=== PATIENT | female | born 1975 ===

== ENCOUNTER 2018-03-11 09:55 | Emergency (ER) | payer SELFPAY ==
--- NOTE | 2018-03-11 10:15 | UC ---
Laceration HPI - HPI Summary HPI Summary: 42 yo female presents with laceration to left thumb. She tells me that about 20min [employer] she was cutting an avocado and the knife slipped and she sliced her left thumb. She bandaged the area and came to . She is unsure the date of her last tetanus. - History Of Current Complaint Chief Complaint: UCLaceration Stated Complaint: THUMB LAC Time Seen by Provider: 03/11/18 10:15 Hx Obtained From: Patient Hx Last Menstrual Period: 02/28/18 Laceration Location: Finger Mechanism Of Injury: Sharp Trauma Onset/Duration: Sudden Onset Severity: Mild Pain Intensity: 2 Pain Scale Used: 0-10 Numeric - Allergies/Home Medications Allergies/Adverse Reactions: Allergies Allergy/AdvReac Type Severity Reaction Status Date / Time No Known Allergies Allergy Verified 03/11/18 10:13 Home Medications: Home Medications NK [No Home Medications Reported] 03/11/18 [History Confirmed 03/11/18] PMH/Surg Hx/FS Hx/Imm Hx - Additional Past Medical History Additional PMH: None - Surgical History Surgical History: None - Family History Known Family History: Positive: None - Social History Occupation: Employed Full-time Lives: With Family Alcohol Use: None Substance Use Type: None Smoking Status (MU): Never Smoked Tobacco Review of Systems Constitutional: Negative Skin: Other - Laceration left thumb Respiratory: Negative Cardiovascular: Negative Neurovascular: Negative Musculoskeletal: Negative Neurological: Negative Psychological: Negative All Other Systems Reviewed And Are Negative: Yes Physical Exam - Summary Physical Exam Summary: GENERAL: NAD. WDWN. No pain distress. SKIN: LEFT THUMB: on the radial aspect of the left thumb there is a 1.0cm linear superficial laceration that is well approximated at rest. No active bleeding, FB, or TTP. CHEST: No accessory muscle use. Breathing comfortably and in no distress. CV: Pulses intact. Cap refill <2seconds MSK: FROM left thumb NEURO: Alert. PSYCH: Age appropriate behavior. Triage Information Reviewed: Yes Vital Signs: Initial Vital Signs Temp 98 F 03/11/18 10:09 Pulse 69 03/11/18 10:09 Resp 17 03/11/18 10:09 BP 100/74 03/11/18 10:09 Pulse Ox 100 03/11/18 10:09 Vital Signs Reviewed: Yes Laceration Repair - Laceration Repair 1 Description: Linear Laceration Size After Repair: Length (cm) - 1.0 Cleansing Completed Via Routine Prep: Yes Closure Material: Skin Adhesive Laceration Course/Dx - Course/Dx Course Of Treatment: The wound was cleansed with 100mL NS. The wound is well approximated at rest, therefore dermabond was applied and allowed to dry before a band-aid was placed. tdap updated today. Pt tolerated well. - Differential Dx - Laceration/Wound Provider Diagnoses: Laceration left thumb Discharge - Sign-Out/Discharge Documenting (check all that apply): Patient Departure All imaging exams completed and their final reports reviewed: No Studies - Discharge Plan Condition: Stable Disposition: HOME Patient Education Materials: Laceration (ED), Skin Adhesive Care (ED) Referrals: No Primary Care Phys,NOPCP [Primary Care Provider] - Additional Instructions: If you develop a fever, shortness of breath, chest pain, new or worsening symptoms - please call your PCP or go to the ED. 1) Keep the area covered with a band-aid until well healed (3-4 days) - Billing Disposition and Condition Condition: STABLE Disposition: Home
[2018-03-11] MEDS ORDERED: Tetan/Diph/Pertus SYR(Tdap)* 0.5 ML SYR(BOOSTRIX) use SYR IM ONE (10:19)
== END 2018-03-11 11:00 | disposition home or self-care (01) ==
LOC: UCEAST 09:55
DX: S61.012A Laceration without foreign body of left thumb without damage to nail, initial encounter (principal); W26.0XXA Contact with knife, initial encounter; Y93.G1 Activity, food preparation and clean up; Y92.9 Unspecified place or not applicable; Z23 Encounter for immunization
CPT/HCPCS: 12001; 90471; 90715; 99201; G0463